=== PATIENT | male | born 1980 | race Caucasian/White ===

== ENCOUNTER 2021-02-18 23:06 | Observation (INO) | payer MEDICARE, OTHER ==
[~2021-02-18] VITALS: Ht 170.2 cm; Wt 158.3 kg
[2021-02-19 00:34] LABS: HEMOGLOBIN 13.7 gm/dl (14.0-17.5); RED BLOOD COUNT 4.64 M/UL (4.20-5.50); WHITE BLOOD COUNT 10.6 K/UL (4.5-11.0)
[2021-02-19 09:53] LABS: BUN/CREATININE RATIO 20 (0-10)
[2021-02-19] MEDS ORDERED: ATORVASTATIN CA40 MG PO (17:18)
[2021-02-19] MEDS ORDERED: GABAPENTIN100 MG PO (17:18)
[2021-02-19] MEDS ORDERED: ELIQUIS5 MG PO (17:18)
[2021-02-19] MEDS ORDERED: PROZAC20 MG PO (17:19)
[2021-02-19] MEDS ORDERED: METOPROLOL TART25 MG PO (17:19)
[2021-02-19] MEDS ORDERED: DIGOXIN250 MCG PO (17:20)
[2021-02-19] MEDS ORDERED: PROTONIX40 MG PO (17:20)
[2021-02-19] MEDS ORDERED: LISINOPRIL5 MG PO (17:21)
[2021-02-19] MEDS ORDERED: TYLENOL 8 HOUR650 MG PO (17:21)
[2021-02-19] MEDS ORDERED: BACLOFEN10 MG PO (17:21)
[2021-02-20 05:06] LABS: HEMOGLOBIN 14.3 gm/dl (14.0-17.5); RED BLOOD COUNT 4.82 M/UL (4.20-5.50); WHITE BLOOD COUNT 9.3 K/UL (4.5-11.0)
[2021-02-22] MEDS ORDERED: HUMALOG 10100 UNITS/ SC ×2 (09:43)
[2021-02-22] MEDS ORDERED: LANTUS INS100 UTS/M1 SC (09:43)
--- NOTE | 2021-02-22 13:12 | NUR ---
[facility] CALLED FOR TRANSPORT
--- NOTE | 2021-02-22 16:30 | NUR ---
REPORT CALLED TO JADON SAM AT [facility]
== END 2021-02-22 15:00 ==
LOC: ER1 23:06 → M/S 02-19 08:11 → CDU 02-19 08:11 → M/S 02-20 17:27
PROVIDERS: Emergency Medicine; Physician Assistant; ADMIT Internal Medicine
DX: E11.65 Type 2 diabetes mellitus with hyperglycemia (principal); L03.314 Cellulitis of groin; N49.2 Inflammatory disorders of scrotum; I48.20 Chronic atrial fibrillation, unspecified; I11.0 Hypertensive heart disease with heart failure; I50.9 Heart failure, unspecified; I69.354 Hemiplegia and hemiparesis following cerebral infarction affecting left non-dominant side; E87.1 Hypo-osmolality and hyponatremia; E78.5 Hyperlipidemia, unspecified; K21.9 Gastro-esophageal reflux disease without esophagitis; E66.01 Morbid (severe) obesity due to excess calories; F32.9 Major depressive disorder, single episode, unspecified; Z79.01 Long term (current) use of anticoagulants; Z79.899 Other long term (current) drug therapy; Z20.822 Contact with and (suspected) exposure to COVID-19; Z87.891 Personal history of nicotine dependence
CPT/HCPCS: 36415; 80048; 80053; 80162; 81001; 82550; 82553; 82803; 82962; 83036; 83874; 84484; 85025; 93005; 96374; 96376; 99285; G0378; J7120; U0002